=== PATIENT | female | born 1945 | race Caucasian/White ===

== ENCOUNTER → 2016-09-07 | Outpatient (CLI) | payer MEDICARE, BC ==
[~2016-09-07] MED LIST: CALC-112 PO; GLUC1500 PO; MULT-717 PO
== END | disposition home or self-care (01) ==
LOC: CFH 13:11
PROVIDERS: ATTEND Internal Medicine Cardiovascular Disease
DX: I07.1 Rheumatic tricuspid insufficiency (principal); I37.1 Nonrheumatic pulmonary valve insufficiency; Z95.2 Presence of prosthetic heart valve
CPT/HCPCS: 93306

== ENCOUNTER 2019-03-04 10:42 | Outpatient (CLI) | payer MEDICARE, BC ==
[~2019-03-04 10:42] MED LIST changes: -GLUC1500 PO; +GLUC15006 PO
== END 2019-03-04 23:59 | disposition home or self-care (01) ==
LOC: CFH 10:42
PROVIDERS: ATTEND Internal Medicine Cardiovascular Disease
DX: I08.8 Other rheumatic multiple valve diseases (principal); Z95.2 Presence of prosthetic heart valve
CPT/HCPCS: 93306